=== PATIENT | female | born 1930 | race Hispanic/Latino ===

== ENCOUNTER 2019-02-22 06:51 | Day surgery (SDC) | payer OTHER, MEDICARE ==
[~2019-02-22] VITALS: Ht 152.4 cm; Wt 76.8 kg
[2019-02-22] VITALS (7 sets, daily range): BP systolic 88–141; BP diastolic 25–58
[~2019-02-22 06:51] MED LIST: AMLO2.5T4 PO; BROM3DRO OP; CALC-877 PO; CHOL200074 PO; CYAN250014 PO; LATA7.5D OP; LEVO25TA54 PO; LOSA25TA41 PO; OMEP-272 PO; SODIUM CHLORIDE 0.9% 1000ML 1,000 ML IV ONE
[2019-02-22] MEDS ORDERED: PROPOFOL 10 MG/ML 20ML VIAL IV ONE (08:45)
== END 2019-02-22 09:38 | disposition home or self-care (01) ==
LOC: ENDO 06:51 → DAH 06:51 → ENDO 09:38
PROVIDERS: ATTEND Internal Medicine
DX: K29.50 Unspecified chronic gastritis without bleeding (principal); K22.8 Other specified diseases of esophagus; K44.9 Diaphragmatic hernia without obstruction or gangrene; K31.89 Other diseases of stomach and duodenum; R12 Heartburn; I10 Essential (primary) hypertension; K21.9 Gastro-esophageal reflux disease without esophagitis; M19.90 Unspecified osteoarthritis, unspecified site; E03.9 Hypothyroidism, unspecified; Z68.34 Body mass index [BMI] 34.0-34.9, adult; Z79.899 Other long term (current) drug therapy; Z98.890 Other specified postprocedural states; Z98.49 Cataract extraction status, unspecified eye
CPT/HCPCS: 43239; 88305; 93005; A4606; J2704; J7030